=== PATIENT | female | born 1990 | race Hispanic/Latino ===

== ENCOUNTER 2017-09-10 00:47 | Emergency (ER) | payer OTHER ==
[2017-09-10 01:01] VITALS: BP 101/68; PULSE 72; RESP 16; TEMP 98.5; O2SAT 96
[2017-09-10] MEDS ORDERED: Fluorescein 1 mg Ophthalmic Strip ONE (01:33)
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
== END 2017-09-10 05:20 | disposition home or self-care (01) ==
LOC: H.ER 00:47
DX: S00.81XA Abrasion of other part of head, initial encounter (principal); S05.92XA Unspecified injury of left eye and orbit, initial encounter; W22.8XXA Striking against or struck by other objects, initial encounter; Y92.89 Other specified places as the place of occurrence of the external cause